=== PATIENT | male | born 1985 | race Caucasian/White ===

== ENCOUNTER → 2017-05-12 15:14 | Outpatient (CLI) | payer OTHER, SELFPAY ==
[2017-05-12 18:37] LABS: Hematocrit 41.7 % (40-54); Hemoglobin 14.4 g/dl (13.0-16.5); Mean Corp Hgb Conc 34.5 g/gl (32-36); Mean Corpuscular Volume 92.7 fL (80-94); Platelet Count 351 K/mm3 (150-450); RBC Distribution Width CV 12.4 % (11.6-14.6); RBC Distribution Width SD 41.3 fl (35.1-43.9)
[2017-05-12 18:55] LABS: Anion Gap 8 (5-15); BUN 19 mg/dL (7-18); Calcium,Total 9.7 mg/dL (8.5-10.1); Chloride 102 mmol/L (98-107); Creatinine, Serum 0.95 mg/dL (0.70-1.30); EST Glomerular Filtration Rate 97 mL/min (>60); Est Glom Filt Rate - Afr Amer 118 mL/min (>60); Glucose 87 mg/dL (74-106); Magnesium 2.2 mg/dL (1.6-2.6); Potassium 3.9 mmol/L (3.5-5.1); Scan Indicated on CBC? Y/N NO; Sodium Level 138 mmol/L (136-145); Thyroid Stim Hormone (TSH) 1.66 uIU/mL (0.358-3.74)
== END ==
PROVIDERS: Visit Provider Family Medicine
DX: R00.2 Palpitations (principal); Z83.2 Family history of diseases of the blood and blood-forming organs and certain disorders involving the immune mechanism
CPT/HCPCS: 36415; 80048; 81241; 83735; 84443; 85027

== ENCOUNTER → 2018-05-14 15:29 | Outpatient (CLI) | payer OTHER, SELFPAY ==
[2018-05-14 17:32] LABS: Anion Gap 8 (5-15); BUN 21 mg/dL (7-18); BUN/Creat Ratio 24.8 RATIO (10-20); Calcium,Total 8.9 mg/dL (8.5-10.1); Chloride 102 mmol/L (98-107); Creatinine, Serum 0.85 mg/dL (0.70-1.30); EST Glomerular Filtration Rate 110 mL/min (>60); Est Glom Filt Rate - Afr Amer 133 mL/min (>60); Glucose 85 mg/dL (74-106); Potassium 4.3 mmol/L (3.5-5.1); Sodium Level 138 mmol/L (136-145)
== END ==
PROVIDERS: Family Provider Family Medicine; PCP Family Medicine; Referring Provider Family Medicine; Visit Provider Family Medicine
DX: I10 Essential (primary) hypertension (principal)
CPT/HCPCS: 36415; 80048

== ENCOUNTER → 2020-12-05 16:32 | Outpatient (CLI) | payer OTHER, SELFPAY ==
[2020-12-05 18:00] LABS: Anion Gap 6 (5-15); BUN 15 mg/dL (7-18); BUN/Creat Ratio 16.3 RATIO (10-20); Calcium,Total 8.8 mg/dL (8.5-10.1); Chloride 103 mmol/L (98-107); Creatinine, Serum 0.92 mg/dL (0.70-1.30); EST Glomerular Filtration Rate 99 mL/min (>60); Est Glom Filt Rate - Afr Amer 120 mL/min (>60); Glucose 117 mg/dL (74-106); Potassium 3.5 mmol/L (3.5-5.1); Sodium Level 137 mmol/L (136-145)
== END ==
PROVIDERS: PCP Family Medicine; Visit Provider Family Medicine
DX: I10 Essential (primary) hypertension (principal)
CPT/HCPCS: 36415; 80048

== ENCOUNTER → 2023-06-05 | Outpatient (CLI) | payer OTHER, SELFPAY ==
[2023-06-05 11:23] LABS: Anion Gap 9 (5-15); BUN 19 mg/dL (7-18); BUN/Creat Ratio 24.5 RATIO (10-20); Calcium,Total 9.6 mg/dL (8.5-10.1); Chloride 106 mmol/L (98-107); Cholesterol 164 mg/dL (200); Creatinine, Serum 0.78 mg/dL (0.70-1.30); EST Glomerular Filtration Rate 118 mL/min (>60); Est Glom Filt Rate - Afr Amer 143 mL/min (>60); Glucose 87 mg/dL (74-106); High Density Lipoprotein 35 mg/dL; Potassium 4.1 mmol/L (3.5-5.1); Sodium Level 139 mmol/L (136-145); Triglycerides 297 mg/dL; Very Low Density Lipoprotein 59 mg/dL (5-40)
== END | disposition home or self-care (01) ==
LOC: MFPLAB 08:01
PROVIDERS: PCP Family Medicine; Visit Provider Family Medicine
DX: I10 Essential (primary) hypertension (principal)
CPT/HCPCS: 36415; 80048; 80061

== ENCOUNTER 2024-06-03 07:56 | Day surgery (SDC) | payer BC, SELFPAY ==
[2024-06-03] VITALS (11 sets, daily range): BP systolic 101–133; BP diastolic 56–88; PULSE 77–92; RESP 14–20; TEMP 36–37.1; O2SAT 90–100; BMI 37.9
--- NOTE | 2024-06-03 | HERN_PTH ---
PATIENT: SHRUTHI PALENCIA LOC: [facility] [place] U#:[id number] AGE/SX: 39/M ROOM: RE06/03/[address]: Dr. Luis Felipe Schulte MD : 1985 BED: DIS: 06/03/2024 SPEC #: [id number] RECD: 06/03/24 13:53 STATUS: JUANCHO MELANIE #: [id number] CARLA: 06/03/24 00:[address]: Luis Felipe Schulte DEPT: SURGICAL PATHOLOGY RECD BY: Adin Herman ENTERED: 06/03/24 13:53 SP TYPE: Hernia OTHR DR: Dr. Memo Ibarra MD Tissues: HERNIA Procedures: Surgery Specimen Level II HEADER OPERATION: Hernia, laparoscopic hybrid umbilical repair with mesh PRE-OP DIAGNOSIS: Umbilical hernia without mention of obstruction or gangrene TISSUE SUBMITTED: Umbilical : hernia sac MICROSCOPIC DIAGNOSIS Umbilical region, hernia sac, excision: * Fibroadipose tissue partially lined by an unremarkable mesothelium, consistent with hernia sac. MICROSCOPIC DESCRIPTION Slides are reviewed. GROSS DESCRIPTION Received in formalin labeled Shruthi Palencia and designated umbilical hernia sac is a yellow-harris, fibrosis saccular structure with attached adipose tissue and measures 3.5 x 2.5 x 1.5 cm. The fibrous tissue is thin, wrinkled, and otherwise unremarkable. Multiple sections are submitted in one cassette.LINDY. 06/03/2024 CPT:80856
[2024-06-03] MEDS: 0.9% Normal Saline (1000mL) 1,000 ML 15 ML IV (08:33)
--- NOTE | 2024-06-03 08:45 | PRE.ANES_ITS ---
ASA Classification* ASA Classification ASA Classification: 2 Assessment & Plan Anesthesia* Anesthesia Assessment Anesthesia Assessment: Discussed sedation and/or anesthesia options, risks, benefits, and alternatives with patient/parents/legal guardian/POA. Questions invited. The patient/parents/legal guardian/POA seems to understand and agrees to proceed with anesthesia plan. Reviewed the physical assessment, medical history, allergy history and patient home medications list prior to surgery/procedure/anesthetic and documented any changes. Performed airway and anesthesia risk assessments. Anesthesia Type Anesthesia Type: General History Source History Obtained from:: Patient and Chart Anesthesia Focused Assessment* Temperature: 96.8 F Pulse Rate: 92 Blood Pressure: 133/86 Respiratory Rate: 14 Pulse Ox: 97 Oxygen Delivery Method: Room Air Airway Assessment Mouth opens: >3 cm Mallampati Score: IV Teeth Condition: Partial (Upper and lower partials. They are out.) Neck Range of motion (ROM): Full ROM Focused Labs Anesthesia Preop lab: CBC WBC 6.0 K/mm3 (4.4-11.0) 05/12/17 15:17 05/12/17 RBC 4.50 M/mm3 (4.6-6.2) L 05/12/17 15:17 05/12/17 Hgb 14.4 g/dl (13.0-16.5) 05/12/17 15:17 05/12/17 Hct 41.7 % (40-54) 05/12/17 15:17 05/12/17 Plt Count 351 K/mm3 (150-450) 05/12/17 15:17 05/12/17 CHEMISTRY Potassium 4.1 mmol/L (3.5-5.1) 06/05/23 08:02 06/05/23 Sodium 139 mmol/L (136-145) 06/05/23 08:02 06/05/23 Magnesium 2.2 mg/dL (1.6-2.6) 05/12/17 15:17 05/12/17 BUN 19 mg/dL (7-18) H 06/05/23 08:02 06/05/23 Creatinine 0.78 mg/dL (0.70-1.30) 06/05/23 08:02 06/05/23 Glucose 87 mg/dL (74-106) 06/05/23 08:02 06/05/23 TSH 1.66 uIU/mL (0.358-3.74) 05/12/17 15:17 COAG Pre-Assessment Diagnosis/Proposed Procedure Planned Operative Procedure(s): Hernia, Lap hybrid Umbilical Repair w/ Mesh Anesthesia History 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 When Was Last Pacemaker Check QUESTION #4 FULL TEXT: You/Your Family Experience fever (hyperthermia) with Anesthesia Last Oral Intake Last Oral intake: Last Oral Intake NPO since 23:00 06/03/24 08:17 Meds taken in AM with sips of No 06/03/24 08:17 water? 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 Female No 05/27/24 08:07 HX of Motion Sickness Yes 05/27/24 08:07 HX of N/V After Surgery No 05/27/24 08:07 Non-Smoker Yes 05/27/24 08:07 Duration of Surgery greater Yes 05/27/24 08:07 than 60 minutes Number of Risk Factors 3 05/27/24 08:07 PONV Score Moderate Risk 05/27/24 08:07 Height & Weight Height & Weight: Anesthesia: Height & Weight Height 5 ft 10 in 06/03/24 08:17 Weight: 120 kg 06/03/24 08:17 Body Mass Index (BMI) 37.9 06/03/24 08:17 Respiratory Assessment Respiratory Assessment - wire straightening machine operator: Respiratory Tract Infection Hx - wire straightening machine operator Hx Respiratory Tract Infection No 05/27/24 08:07 Any additional information?: Yes Hx Respiratory Tract Infection: Yes (had a cold a week and a half ago. He has been better for about a week.) STOP Sleep Apnea STOP Sleep Apnea - wire straightening machine operator: STOP Sleep Apnea - wire straightening machine operator Hx Hypertension Yes: CONTROLLED WITH MED 05/27/24 08:07 Hx Sleep Apnea No 05/27/24 08:07 CPAP BIPAP Do you snore loudly (louder No 05/27/24 08:07 than talking or can be heard Do you often feel tired/ No 05/27/24 08:07 fatigued/ sleepy during daytime? Has anyone observed you stop No 05/27/24 08:07 breathing during sleep? STOP Results Negative 05/27/24 08:07 QUESTION #5 FULL TEXT : Do you snore loudly (louder than talking or can be heard through closed doors)? 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 Specify any problems Hx of Preganancy in last 3 N/A 05/27/24 08:07 Months Nurse Filling Out Transfusion NBUCHER 05/27/24 08:07 & Questions: Date: 05/27/24 05/27/24 08:07 Time: 08:08 05/27/24 08:07 Patient unable to answer at this time (ie. 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: /Reproductive Hx- wire straightening machine operator Hx Now No 05/27/24 08:07 Gestational Age (in weeks): EDC: Hx Hx Para Hx Section SAB No 05/27/24 08:07 Active Medications Active Medications: Current Medications Generic Name Dose Route Start Last Admin Trade Name Freq PRN Reason Stop Dose Admin Clindamycin Phosphate 900 mg in 50 mls @ 75 mls/hr 06/03/24 09:20 Cleocin IV 06/03/24 09:59 PREOP ONE Sodium Chloride 1,000 mls @ 15 mls/hr 06/03/24 08:10 06/03/24 08:33 IV 06/08/24 21:29 15 mls/hr .Q48H ANGELIC Administration Protocol [facility] Medical History (Updated 05/27/24 @ 08:11 by Charmaine Mercer) Wears glasses Wears partial dentures Thyroid disease Arthritis Heartburn Non-smoker Hypertension History of ankle fracture Umbilical hernia with gangrene Home Medications ?Medication ?Instructions ?Recorded ?Last Taken ?Type lisinopril 20 1 tab PO QDAY 05/24/2406/02 History mg-hydrochlorothiazide 12.5 mg tablet Allergy/AdvReac Type Severity Reaction Status Date / Time Penicillins Allergy PT UNSURE Verified 06/03/24 08:16 OF REACTION Social History (Updated 05/24/24 @ 08:12 by Yumiko Elkins LPN) Smoking Status: Never smoker alcohol intake: never substance use type: does not use Review of Systems (Anesthesia) ROS Narrative System reviewed and no additional complaints, except as documented.
--- NOTE | 2024-06-03 08:59 | HP.PCM_ITS ---
History and Physical Date of Admission: 06/03/24 Intake Vital Signs 05/24/2507:12 Height 5 ft 10 in Weight: 274 lb 6 oz BMI 39.3 BP 116/74 Blood Pressure Location Rt brachial Position Sitting Respiration 18 Pulse 89 Pulse Source Monitor Temp 97.8 F Temp Source Temporal Pulse Oximetry (%) 100 Oxygen Delivery Method room air Intake Visit Reasons: UMBILICAL HERNIA Chief Complaint: umbilical hernia Is patient in pain?: No Allergies Penicillins Allergy (Verified 05/24/24 08:13) PT UNSURE OF REACTION Medications ?Medication ?Instructions ?Recorded ?Confirmed ?Type lisinopril 20 1 tab PO QDAY 05/24/24 05/24/24 History mg-hydrochlorothiazide 12.5 mg tablet PFSH Medical History (Updated 05/24/24 @ 09:[address] Luis Felipe Schulte MD) Umbilical hernia with gangrene Social History (Updated 05/24/24 @ 08:12 by Yumiko Elkins LPN) Smoking Status: Never smoker alcohol intake: never substance use type: does not use HPI HPI HPI: Patient is a 39-year-old male with an umbilical hernia that has been there for 4 years. He says it is enlarging and growing more uncomfortable. ROS General General: Yes weight change; No appetite, fatigue, colon cancer, breast cancer or weakness HEENT HEENT: No difficulty swallowing, eye injury, eye surgery, swollen glands or hoarseness Endo Endocrine: No thyroid disease, diabetes mellitus, thyroid cancer, Hair loss, heat intolerance or cold intolerance Skin Skin: No rash or changing moles Musc Musculoskeletal: No back problems, arthritis, rheumatoid arthritis, gout or joint pain Cardio Cardiovascular: Yes high blood pressure; No murmur, pacemaker, heart disease, atrial fibrillation, heart attack, heart stent, palpitations, shortness of breat with exertion or chest pain Psych Psychiatric: No depression, anxiety or hearing voices Resp Respiratory: No shortness of breath, No sleep apnea, No cough, No COPD, No asthma, No emphysema and No wheezing Gastro Gastrointestinal: No abdominal pain, No nausea or vomiting, No diarrhea, No constipation, No blood in stool, No acid reflux, Yes hemorrhoids, No ulcers, No gallbladder problem and No black,tarry stools Daniel Hematologic: No blood thinners, No blood disorders, No bleeding, No anemia and No blood clots Neuro Neurologic: No numbness, No tingling and No weakness Exam Const General: cooperative Orientation: alert and oriented x3 HENMT Head: normal to inspection Neck Neck: normal visual inspection and full ROM Chest Chest palpation & inspection: normal inspection of the chest Resp Effort & Inspection: normal respiratory effort Auscultation: clear to auscultation bilaterally Cardio Rate: regular rate Rhythm: regular rhythm GI Inspection: non-distended Palpation: soft, hernia umbilical and nontender Skin General: no rashes or lesions noted Neuro General: patient alert and patient oriented x3 Extrem General: full ROM Psych Appearance: grossly normal Mental Status: mental status grossly normal Assessment and Plan Assessment and Plan (1) Umbilical hernia without mention of obstruction or gangrene: Status: Acute Qualifiers: Obstruction and gangrene presence: without obstruction or gangrene Qualified Code(s): K42.9 - Umbilical hernia without obstruction or gangrene Plan: The patient has an umbilical hernia which is not reducible. The patient's hernia is large enough that I recommended a laparoscopic hybrid approach. I discussed this with him in detail. I discussed the risks including but not l imited to bleeding, infection, injury to underlying organ such as the bowel. Patient understands all the risks and is willing to proceed. Luis Felipe Schulte MD Pager: [facility] [address] [place] [address], [address] [place] [address] Office: I have examined the patient and the H&P has been reviewed. There are no clinical changes since date of exam.
[2024-06-03] MEDS: 0.9% Normal Saline (Pres. free 10 ML Vial ×2 (09:14→09:50)
[2024-06-03] MEDS: Clindamycin 900 MG/50 ML BAG 75 MG IV (09:35)
[2024-06-03] MEDS: Bupivacaine 0.25% 30 ML Vial (09:52)
[2024-06-03] MEDS: BUPIVACAINE LIPOSOME/PF 20 ML VIAL OPERA.SITE (09:56)
--- NOTE | 2024-06-03 10:21 | PCM.OPRPT ---
Operative Report (Standard) Operative Information Date of Procedure: 06/03/24 Pre-Operative Diagnosis: Incarcerated umbilical hernia Post-Operative Diagnosis: Same Surgery/Procedure Performed: Incarcerated umbilical hernia repair with mesh laparoscopic hybrid approach professional nursing tutor: Yes Telephone Diaphragm Assembler: Serene Aj Tasks completed by supply chain assistant: Opening and Closing Type of Anesthesia: General/Regional RN Documented Start/Stop Times: Operation Date: 06/03/24 09:25 Case Time Into Pre-Op 06/03/24 08:07 Out of Pre-Op 06/03/24 09:15 Anesthesia Start 06/03/24 09:18 Into Room 06/03/24 09:18 Procedure Start 06/03/24 09:40 Procedure End 06/03/24 10:12 Anesthesia End 06/03/24 10:14 Out of Room 06/03/24 10:14 Procedure Start Time: 09:40 Procedure Stop Time: 10:12 Select all DRAINS/GRAFTS/IMPLANTS that apply: Implanted device Implanted device details: [address] mesh Estimated Blood Loss: 5 Specimen collected: Yes Description of specimen(s) removed: Hernia sac Description of surgery: Patient was brought to the operating room and general anesthesia was induced. The abdomen was prepped and draped in usual sterile fashion. A curvilinear incision was marked superior to the umbilicus and then incised. The hernia sac was encountered and it was dissected free from surrounding tissue using electrocautery dissection circumferentially. Once this was dissected free it was reduced. The hernia sac was then amputated and removed and sent for pathology. Through the opening of the hernia a 12 mm port was placed and then the abdomen is insufflated to 15 mmHg. Under direct visualization tap block was performed bilaterally. This was done using Exparel and Marcaine and saline solution. Next under direct visualization 5 mm ports placed in the left lower quadrant as well as a 5 mm port in the left upper quadrant. A [address] mesh was selected and placed through the 12 mm port. The 12 mm port was then removed. The fascia at the umbilicus was then closed with interrupted #1 Nurolon sutures. Next the abdomen was reinsufflated and the camera was placed through the sideport. The balloon on the mesh was inflated and it was brought up to the abdominal wall and hemostat in place. The mesh was tacked in 4 quadrants using secure strap tacker and then the balloon was removed and checked. The balloon was in its entirety. Next using a secure strap tacker and 2 rows the mesh was tacked to the anterior abdominal wall. Next the abdomen was allowed to desufflate. All of the skin incisions were injected with local anesthetic and closed with interrupted 4-0 Monocryl sutures. Steri-Strips and bandages were applied. Patient tolerated the procedure well was brought to PACU in stable condition. Surgical Findings: Incarcerated umbilical hernia Complications Complications: No Admit VTE Documentation VTE Mechan Device Prophylaxis: SCD's
--- NOTE | 2024-06-03 10:23 | PCM.POST.ANE ---
Anesthesia: Postop Eval I Current Vital Signs Temperature: 98.2 F Pulse Rate: 80 Blood Pressure: 114/82 Respiratory Rate: 20 Pulse Ox: 100 Oxygen Delivery Method: Room Air Assessment Airway patent: Yes Spontaneous unlabored respirations: Yes Mental status: Awake and Calm nausea: No Vomiting: No Anesthesia Complication: No Fluid Hydration Crystalloid volume administer (ml): 900 Total IV fluid infused: 900 Progress Note Anesthesia document: Postop Eval 1 completed: Yes
--- NOTE | 2024-06-03 10:25 | EX.PCM.DISCH ---
Discharge Instructions Procedure Hernia Diet Discharge Diet: Light diet - advance as tolerated Activity Discharge Activity: May Not Drive (for 2-3 days or while taking narcotic pain meds.) and May Shower (with the bandage in place 1-2 days after surgery.) Lifting Restrictions: 20 pounds for 4 weeks. Additional Activity Instructions:: Climbing stairs is fine, walking is encouraged. Sitting in bed may be uncomfortable. Sitting up using your lateral muscles (sitting up sideways) is usually more comfortable. Do not drive, work heavy equipment of sign legal documents for 24 hours. Pain medications may cause nausea, you should typically eat light foods as you take your pain medications. Pain medications may also cause constipation. If you have difficulty with this, discuss with your doctor. Ice as needed for 20 minutes on 20 minutes off to help with pain Alternate ibuprofen and Tylenol for pain control, oxycodone for breakthrough pain Take Colace or MiraLAX for constipation Dressing / Incision Call your doctor if your incision/area has: Continuous Slow Oozing, Sudden Increased Bleeding, Increased Pain/ Swelling, Increased Redness and Foul Smelling Discharge Call your doctor if you observe: Fever of 101 or Higher Suture Line Care: Avoid Pulling/Pushing and Avoid Pinching/Bending Remove Dressing in: 2 days (Remove clear bandages in 2 days, remove Steri-Strips in 7 to 10 days.) Follow Up Care Please Follow Up With: Luis Felipe Schulte MD When: Please call to schedule 2 week follow up appointment. [phone] Test Results: Test results from this visit will be discussed in further detail at your follow-up appointment, if applicable. Discharge Plan Admission Attending Provider: Luis Felipe Schulte Primary Care Provider: Memo Ibarra Instructions Print Language: Macanese Discharge Orders/Prescriptions Prescriptions: New oxycodone 5 mg Tablet 5 - 10 mg PO Q4H PRN PRN (Reason: Pain Score 4-10) 5 Days Qty: 20 0RF No Action lisinopril-hydrochlorothiazide 20-12.5 mg tablet 1 tab PO QDAY Referrals / Follow Up: Memo Ibarra MD [Primary Care Provider] - Disposition Disposition (needs filled in before D/C Order can be placed): Home, Self Care
[2024-06-03] MEDS: oxyCODONE 5 MG Tablet PO (12:28)
[2024-06-03] MEDS: Acetaminophen 325 MG Tablet 650 MG PO (12:28)
--- NOTE | 2024-06-03 12:50 | POSTOPAN2_ITS ---
Anesthesia Postop Eval I Sum Postop Eval Completion status Anesthesia document: Postop Eval 1 completed: Yes Anesthesia Postop Eval I Summary Anesthesia Postop Eval I Summary: Anesthesia Postop Eval I: Assessment Summary Airway patent Yes 06/03/24 10:24 CAP JEWEL PLATE [email or web address] Spontaneous unlabored Yes 06/03/24 10:24 CAP JEWEL PLATE [email or web address] respirations Mental status Awake,Calm 06/03/24 10:24 CAP JEWEL PLATE [email or web address] nausea No 06/03/24 10:24 CAP JEWEL PLATE [email or web address] Vomiting No 06/03/24 10:24 CAP JEWEL PLATE [email or web address] Anesthesia Postop Eval I: Fluid Summary Crystalloid volume administer 900 06/03/24 10:24 CAP JEWEL PLATE [email or web address] (ml) Colloids volume administered ( ml) Blood Product volume administered (ml) Total IV fluid infused 900 06/03/24 10:24 CAP JEWEL PLATE [email or web address] Anesthesia Postop Eval I: Summary Notes Anesthesia Complication No 06/03/24 10:24 CAP JEWEL PLATE [email or web address] Anesthesia Complication Comment: Post-operative progress note Anesthesia: Postop Eval II Evaluation Mental status: Awake and Calm Pain Level: 0 nausea: No Vomiting: No Complications Anesthesia Complication: No
--- NOTE | 2024-06-03 12:50 | PCM.POSTANE2 ---
Anesthesia Postop Eval I Sum Postop Eval Completion status Anesthesia document: Postop Eval 1 completed: Yes Anesthesia Postop Eval I Summary Anesthesia Postop Eval I Summary: Anesthesia Postop Eval I: Assessment Summary Airway patent Yes 06/03/24 10:24 [email or web address] Spontaneous unlabored Yes 06/03/24 10:24 [email or web address] [email or web address] respirations Mental status Awake,Calm 06/03/24 10:24 [email or web address] [email or web address] nausea No 06/03/24 10:24 [email or web address] [email or web address] Vomiting No 06/03/24 10:24 [email or web address] Anesthesia Postop Eval I: Fluid Summary Crystalloid volume administer 900 06/03/24 10:24 [email or web address] (ml) Colloids volume administered ( ml) Blood Product volume administered (ml) Total IV fluid infused 900 06/03/24 10:24 [email or web address] Anesthesia Postop Eval I: Summary Notes Anesthesia Complication No 06/03/24 10:24 [email or web address] Anesthesia Complication Comment: Post-operative progress note Anesthesia: Postop Eval II Evaluation Mental status: Awake and Calm Pain Level: 0 nausea: No Vomiting: No Complications Anesthesia Complication: No
== END 2024-06-03 13:31 | disposition home or self-care (01) ==
LOC: SDC 07:57 → AC 08:00
PROVIDERS: PCP Family Medicine; Referring Provider Surgery; Visit Provider Surgery
PROC: 0WQF4ZZ Repair Abdominal Wall, Percutaneous Endoscopic Approach (ICD-10-PCS; CPT 49592; principal; 2024-06-03 09:05)
DX: K42.0 Umbilical hernia with obstruction, without gangrene (principal); I10 Essential (primary) hypertension; Z79.899 Other long term (current) drug therapy
CPT/HCPCS: 49592; 00750; 88302; J0666; J2405